=== PATIENT | male | born 1965 | race African-American/Black ===

== ENCOUNTER 2021-05-16 07:36 | Emergency (ER) | payer MEDICAID, OTHER ==
[~2021-05-16] VITALS: Ht 175.3 cm; Wt 58.1 kg
[2021-05-16 08:14] VITALS: BP 110/88
[2021-05-16] MEDS ORDERED: METHOCARBAMOL 500 MG TAB PO ONE (08:30)
[2021-05-16] MEDS ORDERED: methylPREDNISolone SOD SUCC 125 MG/2 ML VL IM ONE (08:30)
== END 2021-05-16 09:47 | disposition home or self-care (01) ==
LOC: ER 07:36
DX: M54.16 Radiculopathy, lumbar region (principal); F17.210 Nicotine dependence, cigarettes, uncomplicated
CPT/HCPCS: 72100; 96372; 99283; J2930